=== PATIENT | female | born 1965 | race Caucasian/White ===

== ENCOUNTER 2018-10-08 10:39 | Inpatient (IN) | payer BC, OTHER ==
[2018-09-27 15:52] VITALS: BMI 43.0
[2018-10-08] MEDS ORDERED: BUPIVACAINE HCL/PF (5 MG/ML) 30 ML VIAL IJ ONE (13:32)
[2018-10-08] MEDS ORDERED: MIDAZOLAM HCL 2 MG/2 ML SINGLE DOSE VIAL ONE (13:32)
--- NOTE | 2018-10-08 14:10 | HP ---
Admitting History and Physical - Admission Chief Complaint: Morbid obesity History Source: Patient Limitations to Obtaining History: No Limitations - Past Medical History Cardiovascular: Yes: HTN ...LMP Comment: 2017 ...: No - Past Surgical History Additional Past Surgical History: Right knee surgery - Smoking History Smoking history: Never smoked Have you smoked in the past 12 months: No - Alcohol/Substance Use Hx Alcohol Use: Yes (RARE) Home Medications - Allergies Allergies/Adverse Reactions: Allergies Allergy/AdvReac Type Severity Reaction Status Date / Time aspirin Allergy Severe Hives Verified 09/27/18 15:33 Sulfa (Sulfonamide Allergy Severe Hives Verified 09/27/18 15:34 Antibiotics) SPICES Allergy Severe Hives Uncoded 09/27/18 15:33 - Home Medications Home Medications: Ambulatory Orders Ergocalciferol (Vitamin D2) [Vitamin D2] 1 tab PO WEEKLY 09/27/18 Folic Acid 1 mg PO DAILY 09/27/18 Furosemide 40 mg PO BID 09/27/18 [id number]-Wtrr 149-Hyal [Glucosamine-Chondr Complex Tab] 1 each PO DAILY 09/27/18 Gaston-3 Fatty Acids [Gaston-3] 1 each PO DAILY 09/27/18 Turmeric 1 each PO DAILY 09/27/18 Vitamin B Complex 1 each PO DAILY 09/27/18 Family Disease History - Family Disease History Family History: Unremarkable Review of Systems - Review of Systems Constitutional: denies: Chills, Fever Neck: reports: No Symptoms Cardiovascular: reports: No Symptoms Respiratory: reports: No Symptoms Gastrointestinal: reports: No Symptoms Neurological: reports: No Symptoms Pain Intensity: 0 Physical Examination Vital Signs: Vital Signs Temperature 97.9 F 10/08/18 12:51 Pulse Rate 74 10/08/18 12:51 Respiratory Rate 18 10/08/18 12:51 Blood Pressure 157/81 10/08/18 12:51 O2 Sat by Pulse Oximetry (%) Constitutional: Yes: Calm Neck: Yes: WNL Cardiovascular: Yes: WNL Respiratory: Yes: Regular Gastrointestinal: Yes: Soft, Abdomen, Obese Neurological: Yes: Alert, Oriented Problem List - Problems (1) Morbid obesity due to excess calories Code(s): E66.01 - MORBID (SEVERE) OBESITY DUE TO EXCESS CALORIES (2) BMI 40.0-44.9, adult Code(s): Z68.41 - BODY MASS INDEX (BMI) 40.0-44.9, ADULT Assessment/Plan Laparoscopic possible open vertical sleeve gastrectomy possible liver biopsy, upper endoscopy
[2018-10-08] MEDS ORDERED: LIDOCAINE HCL/PF 2% SDV 5ML VIAL ONE ×2 (14:16→15:32)
[2018-10-08] MEDS ORDERED: fentaNYL CITRATE 250 MCG/5 ML VIAL ONE (14:16)
[2018-10-08] MEDS ORDERED: PROPOFOL 20 ML ONE ×2 (14:17→15:58)
[2018-10-08] MEDS ORDERED: ROCURONIUM BROMIDE 50 MG/5 ML VIAL ONE ×2 (14:18→15:23)
[2018-10-08] MEDS ORDERED: BUPIVACAINE HCL/PF 2.5 MG/ML - 30 ML VIAL IJ ONE (14:24)
[2018-10-08] MEDS ORDERED: DEXAMETHASONE SOD PHOSPHATE 4 MG/1 ML VIAL ONE (14:59)
[2018-10-08] MEDS ORDERED: ONDANSETRON 4 MG/2 ML VIAL ONE (14:59)
[2018-10-08] MEDS ORDERED: ePHEDrine SULFATE 50 MG/1 ML AMPULE ONE (15:20)
[2018-10-08] MEDS ORDERED: GLYCOPYRROLATE 0.2 MG/1 ML VIAL ONE (15:31)
[2018-10-08] MEDS ORDERED: NEOSTIGMINE METHYLSULFATE 0.5 MG/ML - 10 ML MDV ONE (15:31)
--- NOTE | 2018-10-08 16:13 | OP ---
Operative Note - Note: Operative Date: 10/08/18 Pre-Operative Diagnosis: Morbid obesity. BMI 43 Operation: Diagnostic laparoscopy. Laparoscopic vertical sleeve gastrectomy. Laparoscopic wedge liver biopsy Post-Operative Diagnosis: Same as Pre-op (as well as hepatomegaly) Surgeon: Luis M Powell Buffing Wheel Raker: Low Mckeon Anesthesia: General Specimens Removed: Greater curvature of stomach. Liver biopsy Estimated Blood Loss (mls): 30 Drains & Tubes with Location: 36 fr Bougie Operative Report Dictated: Yes
[2018-10-08] MEDS ORDERED: HYDROmorphone HCl 2 MG/ML VIAL IVPB PRN (16:14)
[2018-10-08] MEDS ORDERED: SODIUM CHLORIDE 1,000 ML IV SCH (16:15)
[2018-10-08] MEDS ORDERED: ONDANSETRON 4 MG/2 ML VIAL IVPUSH PRN (16:25)
[2018-10-08] MEDS: ONDANSETRON 4 MG/2 ML VIAL IVPUSH SCH ×2 (16:25→21:53)
[2018-10-08] MEDS ORDERED: HALOPERIDOL LACTATE 5 MG/ML IM SCH (16:30)
[2018-10-08] MEDS: METOCLOPRAMIDE HCL INJECTION 10 MG/2 ML VIAL IVPUSH SCH ×2 (16:35→21:53)
[2018-10-08] MEDS ORDERED: METOCLOPRAMIDE HCL INJECTION 10 MG/2 ML VIAL ONE (16:39)
[2018-10-08] MEDS ORDERED: ACETAMINOPHEN INJECTION 100 ML IVPB ONE (16:40)
[2018-10-08 16:48] LABS: HEMOGLOBIN 13.1 GM/dl (10.7-15.3)
[2018-10-08 16:49] LABS: HEMATOCRIT 39.1 % (32.4-45.2); MCH 29.9 pg (25.7-33.7); MCHC 33.5 g/dl (32.0-36.0); MEAN CELL VOLUME 89.2 fl (80-96); MEAN PLT VOLUME 8.2 fl (7.5-11.1); PLATELET COUNT 257 K/MM3 (134-434); RBC 4.38 M/mm3 (3.60-5.2); RDW 12.1 % (11.6-15.6); WHITE BLOOD COUNT 12.5 K/mm3 (4.0-10.8)
[2018-10-08] MEDS ORDERED: FAMOTIDINE 20 MG/50 ML IVPB 20 MG/50 ML MG IVPB ONE (16:52)
[2018-10-08] MEDS ORDERED: FAMOTIDINE 20 MG PREMIXED IVPB IVPB ONE (16:52)
[2018-10-08] MEDS: ACETAMINOPHEN 1000 MG/100 ML VIAL (NON FORMULARY) IVPB SCH ×2 (17:00→21:53)
[2018-10-08 17:01] LABS: ALBUMIN 3.8 g/dl (3.4-5.0); BILIRUBIN,TOTAL 0.6 mg/dl (0.2-1); CALCIUM 8.8 mg/dl (8.5-10); CREATININE 0.6 mg/dl (0.55-1.3); POTASSIUM 3.7 mmol/L (3.5-5.1); TOT PROT 6.7 g/dl (6.4-8.2)
--- NOTE | 2018-10-08 18:13 | CONSULT ---
Consult Consult Specialty:: IM Reason for Consultation:: post-op medical management - History of Present Illness Chief Complaint: obesity History of Present Illness: 52 yo obese female came in for Diagnostic laparoscopy. Laparoscopic vertical sleeve gastrectomy. Laparoscopic wedge liver bx. denies chest pain, palpittaions, nausea, vomiting, diarrhea - History Source History Provided By: Patient, Family Member - Past Medical History Cardio/Vascular: Yes: HTN ...LMP Comment: 2017 ...: No - Alcohol/Substance Use Hx Alcohol Use: Yes (RARE) - Smoking History Smoking history: Never smoked Have you smoked in the past 12 months: No Home Medications - Allergies Allergies/Adverse Reactions: Allergies Allergy/AdvReac Type Severity Reaction Status Date / Time aspirin Allergy Severe Hives Verified 09/27/18 15:33 Sulfa (Sulfonamide Allergy Severe Hives Verified 09/27/18 15:34 Antibiotics) SPICES Allergy Severe Hives Uncoded 09/27/18 15:33 - Home Medications Home Medications: Ambulatory Orders Ergocalciferol (Vitamin D2) [Vitamin D2] 1 tab PO WEEKLY 09/27/18 Folic Acid 1 mg PO DAILY 09/27/18 Furosemide 40 mg PO BID 09/27/18 [id number]-Bflz 149-Hyal [Glucosamine-Chondr Complex Tab] 1 each PO DAILY 09/27/18 Ralls-3 Fatty Acids [Ralls-3] 1 each PO DAILY 09/27/18 Turmeric 1 each PO DAILY 09/27/18 Vitamin B Complex 1 each PO DAILY 09/27/18 Famotidine [Pepcid] 20 mg PO BID #60 tablet 10/08/18 Oxycodone HCl/Acetaminophen [Percocet 5-325 mg Tablet] 1 - 2 tab PO Q6H #28 tab MDD 4 10/08/18 Review of Systems - Review of Systems Constitutional: reports: No Symptoms, Lethargy Eyes: reports: No Symptoms HENT: reports: No Symptoms Neck: reports: No Symptoms Cardiovascular: reports: No Symptoms Respiratory: reports: No Symptoms Gastrointestinal: reports: No Symptoms Genitourinary: reports: No Symptoms Musculoskeletal: reports: No Symptoms Integumentary: reports: No Symptoms Neurological: reports: No Symptoms Endocrine: reports: No Symptoms Hematology/Lymphatic: reports: No Symptoms Psychiatric: reports: No Symptoms Physical Exam Vital Signs: Vital Signs Temperature 98.1 F 10/08/18 16:17 Pulse Rate 71 10/08/18 17:00 Respiratory Rate 16 10/08/18 17:00 Blood Pressure 149/83 10/08/18 17:00 O2 Sat by Pulse Oximetry (%) 100 10/08/18 17:00 Constitutional: Yes: Well Nourished, No Distress, Calm Eyes: Yes: WNL HENT: Yes: WNL Neck: Yes: WNL Cardiovascular: Yes: WNL Respiratory: Yes: WNL Gastrointestinal: Yes: WNL Renal/: Yes: WNL Edema: No Integumentary: Yes: WNL Neurological: Yes: WNL ...Motor Strength: WNL Psychiatric: Yes: WNL Labs: CBC, BMP 10/08/18 16:20 10/08/18 16:20 Assessment/Plan 52 yo obese lady S/P Diagnostic laparoscopy. Laparoscopic vertical sleeve gastrectomy. Laparoscopic wedge liver bx no complications. pain management. incentive spirometry. -GI, DVT prophylaxis. -on furosemide at home: resume once oral intake resumed. -OOB as tolerated -bllod work and meds reviewed -assessment and plan discussed with pt and family at bedside -Hopefully DC home tomorrow if no complications
--- NOTE | 2018-10-08 20:34 | SPEC ---
DATE OF OPERATION: 10/08/2018 SURGEON: Luis M Powell MD SHOE LAY OUT PLANNER: Low Mckeon MD PLACE OF SURGERY: [place] [id number] PREOPERATIVE DIAGNOSES: 1. Morbid obesity. 2. Body mass index 43.1. POSTOPERATIVE DIAGNOSES: 1. Morbid obesity. 2. Body mass index 43.1. 3. Hepatomegaly. PROCEDURE: 1. Diagnostic laparoscopy. 2. Laparoscopic vertical sleeve gastrectomy. 3. Laparoscopic wedge liver biopsy. SPECIMEN: 1. Greater curvature of the stomach. 2. Liver biopsy. ESTIMATED BLOOD LOSS: 30 mL. DRAINS: None. ANESTHESIA: GET. BOUGIE SIZE: 36 Russian. REASON FOR PROCEDURE: This is a 52-year-old female who presents for weight loss options. After describing different options, she decided to proceed with laparoscopic, possible open, vertical sleeve gastrectomy, possible liver biopsy and upper endoscopy. The risks and benefits of the procedure were explained. These included bleeding, infection, hernia, LA, DVT, PE, injury to the surrounding abdominal structures including the bowel, colon, esophagus, spleen, vessel injury, nerve injury, obstruction, staple line leak/gastric leak, weight regain, vitamin deficiency, hair loss, and , as some of the complications. She understood and signed informed consent. She was cleared by the respective subspecialties. DESCRIPTION OF PROCEDURE: The patient was placed supine on the operating room table. The patient underwent general endotracheal intubation. The arms were brought out at 90 degrees and secured. A footboard was placed and the legs were secured laterally with padding. The abdomen was prepped and draped in the usual sterile fashion. A timeout was performed. An incision was made in the left upper quadrant and a Veress needle inserted. Pneumoperitoneum was established. Subsequently, the Veress needle was removed and a 5-mm trocar was placed under direct visualization with the laparoscope. The laparoscopic camera was then inserted and inspection of the abdominal cavity was performed. An incision was then made in the supraumbilical area and a 15-mm trocar was placed under direct visualization. A 5-mm trocar was then placed in the right upper quadrant and a 5-mm trocar was placed below the left subcostal margin. A stab wound was made in the subxiphoid area and a Samia clamp inserted and removed to dilate the tract. A Osbaldo liver retractor was inserted. The post was secured at the bedside by the nursing staff. The patient was placed in steep reverse Trendelenburg position and the Osbaldo liver retractor was used to secure the liver towards the anterior abdominal wall. The pylorus was identified and 6 cm proximal to it, the lesser sac was entered using the LigaSure device. All lateral attachments to the greater curvature of the stomach, including the short gastric vessels, were ligated using the LigaSure device toward the gastrosplenic and gastrophrenic ligaments. Once this was done in its entirety, it was confirmed that all tubes within the nasal or oropharyngeal cavity, including a temperature probe were removed by Anesthesia. The bougie was then inserted by Anesthesia. Transection of the stomach was then begun staying adjacent to the bougie but away from the angularis. Transection of the stomach was performed near the portion of the stomach where the lesser sac was entered. Two laparoscopic Endo-LILLIE black scott were used at this location. Laparoscopic Endo LILLIE purple staple loads were then used for the remainder of the transection until the greater curvature of the stomach was fully transected. This was done staying close to the bougie. Care was taken to stay away from the angle of His cephalad. The staple line was then inspected. Hemostasis was identified. A leak test was then performed. It was clamped distally to the staple line. Irrigation solution was placed in the left upper quadrant and air was insufflated by Anesthesia into the sleeve. No leaks were identified. No obstruction was identified. This was done through the entirety of the staple line. The stomach was suctioned and the bougie removed fully intact under direct visualization. At this point, the irrigation solution was suctioned and again, hemostasis was noted. A wedge liver biopsy was then performed. The left lobe of the liver was identified. A portion of the edge of the left lobe of the liver was grasped. Using electrocautery, a wedge of the left liver was excised. The specimen was removed and sent off the field. Hemostasis of the wedge liver biopsy site was attained and noted using electrocautery. The 15-mm supraumbilical trocar was then removed and the greater curvature specimen removed from the site using a sponge stick mcmahon. A Conrad-Ron device was then used to close the fascia with a 0 Vicryl suture at the site. Again, hemostasis was noted. The Osbaldo liver retractor was then removed under direct visualization. Pneumoperitoneum was desufflated. Hemostasis was noted at all incision sites and Marcaine was injected at all incision sites. A 3-0 Vicryl suture was used to close the deep subcutaneous tissue at the 15-mm incision site. All incision sites were closed using 4-0 Biosyn. Sterile dressings were applied. The patient tolerated the procedure well and was transferred to the recovery room in stable condition. Shi [id number] MTDD
[2018-10-08] MEDS: FAMOTIDINE 20 MG/50 ML IVPB 20 MG/50 ML MG IVPB SCH (21:53)
[2018-10-08] MEDS: ENOXAPARIN NA (PORCINE) 40 MG/0.4 ML DISP.SYRIN SQ SCH (21:55)
[2018-10-09] MEDS: ONDANSETRON 4 MG/2 ML VIAL IVPUSH SCH ×3 (00:33→08:05)
[2018-10-09] MEDS: METOCLOPRAMIDE HCL INJECTION 10 MG/2 ML VIAL IVPUSH SCH ×2 (03:59→10:15)
[2018-10-09] MEDS: ACETAMINOPHEN 1000 MG/100 ML VIAL (NON FORMULARY) IVPB SCH ×2 (03:59→10:15)
[2018-10-09 08:18] LABS: HEMATOCRIT 37.5 % (32.4-45.2); HEMOGLOBIN 12.4 GM/dl (10.7-15.3); MCH 29.7 pg (25.7-33.7); MCHC 33.2 g/dl (32.0-36.0); MEAN CELL VOLUME 89.3 fl (80-96); MEAN PLT VOLUME 8.7 fl (7.5-11.1); PLATELET COUNT 244 K/MM3 (134-434); RDW 11.5 % (11.6-15.6); WHITE BLOOD COUNT 10.3 K/mm3 (4.0-10.8)
[2018-10-09 08:29] LABS: ALBUMIN 3.5 g/dl (3.4-5.0); BILIRUBIN,TOTAL 0.7 mg/dl (0.2-1); CALCIUM 8.5 mg/dl (8.5-10); CREATININE 0.5 mg/dl (0.55-1.3); POTASSIUM 3.9 mmol/L (3.5-5.1); TOT PROT 6.4 g/dl (6.4-8.2)
--- NOTE | 2018-10-09 10:05 | PN ---
Progress Note, Physician Chief Complaint: s/p gastric sleeve under general anesthesia History of Present Illness: post op day one - Current Medication List Current Medications: Active Medications Acetaminophen (Ofirmev Injection -) 1,000 mg IVPB Q6H [facility] Stop: 10/09/18 10:16 Last Admin: 10/09/18 03:59 Dose: 1,000 mg Enoxaparin Sodium (Lovenox -) 40 mg SQ BID [facility] Last Admin: 10/08/18 21:55 Dose: 40 mg Hydromorphone HCl (Dilaudid Vial -) 1 mg IVPB Q3H PRN PRN Reason: PAIN LEVEL 4 - 6 Last Admin: 10/08/18 18:27 Dose: 1 mg Famotidine/Sodium Chloride (Pepcid 20 Mg Premixed Ivpb -) 20 mg in 50 mls @ 100 mls/hr IVPB BID [facility] Last Admin: 10/08/18 21:53 Dose: 100 mls/hr Sodium Chloride (Normal Saline -) 1,000 mls @ 150 mls/hr IV ASDIR [facility] Last Admin: 10/08/18 18:36 Dose: Not Given Metoclopramide HCl (Reglan Injection -) 10 mg IVPUSH Q6H [facility] Last Admin: 10/09/18 03:59 Dose: 10 mg Ondansetron HCl (Zofran Injection) 4 mg IVPUSH Q4H [facility] Last Admin: 10/09/18 08:05 Dose: 4 mg - Objective Vital Signs: Vital Signs Temperature 97.8 F 10/09/18 05:22 Pulse Rate 77 10/09/18 05:22 Respiratory Rate 19 10/09/18 05:22 Blood Pressure 157/89 10/09/18 05:22 O2 Sat by Pulse Oximetry (%) 98 10/09/18 05:22 Constitutional: Yes: Well Nourished Cardiovascular: Yes: WNL Respiratory: Yes: WNL Gastrointestinal: Yes: WNL Labs: CBC, BMP 10/09/18 07:30 10/09/18 07:30 Assessment/Plan Pain controlled, no nausea or vomiting, no adverse anesthetic effects, dept of anesthesiology will sign off care at this time
[2018-10-09] MEDS: ENOXAPARIN NA (PORCINE) 40 MG/0.4 ML DISP.SYRIN SQ SCH (10:14)
[2018-10-09] MEDS: FAMOTIDINE 20 MG/50 ML IVPB 20 MG/50 ML MG IVPB SCH (10:15)
--- NOTE | 2018-10-09 10:30 | PN ---
Progress Note, Physician History of Present Illness: 52 yo obese female came in for Diagnostic laparoscopy. Laparoscopic vertical sleeve gastrectomy. Laparoscopic wedge liver bx. denies chest pain, palpittaions, nausea, vomiting, diarrhea - Current Medication List Current Medications: Active Medications Enoxaparin Sodium (Lovenox -) 40 mg SQ BID [facility] Last Admin: 10/09/18 10:14 Dose: 40 mg Hydromorphone HCl (Dilaudid Vial -) 1 mg IVPB Q3H PRN PRN Reason: PAIN LEVEL 4 - 6 Last Admin: 10/08/18 18:27 Dose: 1 mg Famotidine/Sodium Chloride (Pepcid 20 Mg Premixed Ivpb -) 20 mg in 50 mls @ 100 mls/hr IVPB BID [facility] Last Admin: 10/09/18 10:15 Dose: 100 mls/hr Sodium Chloride (Normal Saline -) 1,000 mls @ 150 mls/hr IV ASDIR [facility] Last Admin: 10/08/18 18:36 Dose: Not Given Metoclopramide HCl (Reglan Injection -) 10 mg IVPUSH Q6H [facility] Last Admin: 10/09/18 10:15 Dose: 10 mg Ondansetron HCl (Zofran Injection) 4 mg IVPUSH Q4H [facility] Last Admin: 10/09/18 08:05 Dose: 4 mg - Objective Vital Signs: Vital Signs Temperature 97.8 F 10/09/18 05:22 Pulse Rate 77 10/09/18 05:22 Respiratory Rate 19 10/09/18 05:22 Blood Pressure 157/89 10/09/18 05:22 O2 Sat by Pulse Oximetry (%) 98 10/09/18 05:22 Constitutional: Yes: Well Nourished, No Distress Eyes: Yes: WNL HENT: Yes: WNL Neck: Yes: WNL Cardiovascular: Yes: WNL Respiratory: Yes: WNL Gastrointestinal: Yes: WNL Genitourinary: Yes: WNL Musculoskeletal: Yes: WNL Extremities: Yes: WNL Edema: No Peripheral Pulses WNL: Yes Integumentary: Yes: WNL Neurological: Yes: WNL ...Motor Strength: WNL Psychiatric: Yes: WNL Labs: CBC, BMP 10/09/18 07:30 10/09/18 07:30 Assessment/Plan 52 yo obese lady S/P Diagnostic laparoscopy. Laparoscopic vertical sleeve gastrectomy. Laparoscopic wedge liver bx no complications. pain management. incentive spirometry. -GI, DVT prophylaxis. -OOB as tolerated -blood work and meds reviewed -assessment and plan discussed with pt and family at bedside -Pt is medically stable for Discharge
[2018-10-09] MEDS ORDERED: oxyCODONE HCL 5 MG TABLET PO PRN (12:16)
--- NOTE | 2018-10-09 12:16 | PN ---
Progress Note (short form) - Note Progress Note: POD 1 Nausea controlled Vital Signs Period Temp Pulse Resp BP Sys/Weiss Pulse Ox Last 24 Hr 97.8 F-98.1 F 64-88 - 113-167/53-90 96-100 CBC,CMP WBC 10.3 K/mm3 (4.0-10.8) 10/09/18 07:30 RBC 4.20 M/mm3 (3.60-5.2) 10/09/18 07:30 Hgb 12.4 GM/dl (10.7-15.3) 10/09/18 07:30 Hct 37.5 % (32.4-45.2) 10/09/18 07:30 MCV 89.3 fl (80-96) 10/09/18 07:30 MCH 29.7 pg (25.7-33.7) 10/09/18 07:30 MCHC 33.2 g/dl (32.0-36.0) 10/09/18 07:30 RDW 11.5 % (11.6-15.6) L 10/09/18 07:30 Plt Count 244 K/MM3 (134-434) 10/09/18 07:30 MPV 8.7 fl (7.5-11.1) 10/09/18 07:30 Sodium 137 mmol/L (136-145) 10/09/18 07:30 Potassium 3.9 mmol/L (3.5-5.1) 10/09/18 07:30 Chloride 109 mmol/L (98-107) H 10/09/18 07:30 Carbon Dioxide 23 mmol/L (21-32) 10/09/18 07:30 Anion Gap 5 MMOL/L (8-16) L 10/09/18 07:30 BUN 7.0 mg/dl (7-18) 10/09/18 07:30 Creatinine 0.5 mg/dl (0.55-1.3) L 10/09/18 07:30 Est GFR (CKD-EPI)AfAm 127.17 10/09/18 07:30 Est GFR (CKD-EPI)NonAf 109.72 10/09/18 07:30 Random Glucose 117 mg/dl (74-106) H 10/09/18 07:30 Calcium 8.5 mg/dl (8.5-10) 10/09/18 07:30 Total Bilirubin 0.7 mg/dl (0.2-1) 10/09/18 07:30 AST 42 U/L (15-37) H 10/09/18 07:30 ALT 42 U/L (13-61) 10/09/18 07:30 Alkaline Phosphatase 69 U/L (45-117) 10/09/18 07:30 Total Protein 6.4 g/dl (6.4-8.2) 10/09/18 07:30 Albumin 3.5 g/dl (3.4-5.0) 10/09/18 07:30 UGI: no leak/obstruction Clears Discharge planning Problem List - Problems (1) Morbid obesity due to excess calories Code(s): E66.01 - MORBID (SEVERE) OBESITY DUE TO EXCESS CALORIES (2) BMI 40.0-44.9, adult Code(s): Z68.41 - BODY MASS INDEX (BMI) 40.0-44.9, ADULT
[2018-10-09] MEDS ORDERED: SODIUM CHLORIDE 1,000 ML IV SCH (12:30)
[2018-10-09 13:42] VITALS: BP 110/78; PULSE 75; TEMP 98
--- NOTE | 2018-10-12 12:16 | PATH ---
Surgical Pathology Report Patient Name: PRAVEENA EATON Med. Rec. #: [id number] /Age/Gender: 1965 (Age: 52) / F Account: [id number] Location: [facility] MED-SURG Taken: 10/08/2018 Received: 10/08/2018 Reported: 10/12/2018 Physicians: Luis M Powell M.D. Specimen(s) Received A: GREATER CURVATURE STOMACH B: LIVER BIOPSY Clinical History Morbid obesity Final Diagnosis A. GREAT CURVATURE OF STOMACH, LAPAROSCOPIC SLEEVE GASTRECTOMY: PORTION OF STOMACH SHOWING MILD CHRONIC MUCOSAL INFLAMMATION. IMMUNOSTAIN IS NEGATIVE FOR H. PYLORI ORGANISMS. B. LIVER, BIOPSY : PORTION OF LIVER SHOWING MILD STEATOSIS (~5%). TRICHROME STAIN SHOWS NO APPRECIABLE INCREASE IN FIBROSIS. IRON STAIN IS SHOWS NO INCREASE IN IRON DEPOSITS. Electronically Signed Naomie Leonard M.D. Gross Description A. Received in formalin, labeled "greater curvature of stomach," is a 106 gram, 18.5 x 3.2 x 2.6 cm. portion of stomach with a stapled margin of resection. The serosa is daniels-bah with minimal attached fat. The mucosa is daniels-pink with normal folds. No mucosal masses are identified. Cement Tester Assistant sections are submitted in one cassette. B. Received in formalin labeled "liver biopsy," is a 2.0 x 1.1 x 0.6 cm daniels-brown portion of soft tissue, consistent with a liver biopsy. The specimen is bisected and entirely submitted in one cassette. /10/09/2018 saudi10/09/2018
== END 2018-10-09 13:15 | disposition home or self-care (01) | DRG 621 ==
LOC: FM/S 12:05
PROVIDERS: ADMIT Surgery; ATTEND Surgery
PROC: 0WJP4ZZ Inspection of Gastrointestinal Tract, Percutaneous Endoscopic Approach (ICD-10-PCS; 2018-10-08)
PROC: 0DB64Z3 Excision of Stomach, Percutaneous Endoscopic Approach, Vertical (ICD-10-PCS; principal; 2018-10-08 15:01)
PROC: 0FB24ZX Excision of Left Lobe Liver, Percutaneous Endoscopic Approach, Diagnostic (ICD-10-PCS; 2018-10-08 15:01)
DX: E66.01 Morbid (severe) obesity due to excess calories (principal); Z68.41 Body mass index [BMI] 40.0-44.9, adult; I10 Essential (primary) hypertension; R16.0 Hepatomegaly, not elsewhere classified
CPT/HCPCS: 36415; 74241-TC-FY; 80053; 85027; 88305-TC; 88313-TC; 94760; J0131